=== PATIENT | female | born 1990 | race Caucasian/White ===

== ENCOUNTER 2022-08-30 18:08 | Emergency (ER) | payer OTHER ==
[~2022-08-30] VITALS: Ht 167.6 cm; Wt 106.9 kg
[2022-08-30] MEDS ORDERED: CYCL-707 PO (18:34)
[2022-08-30] MEDS ORDERED: NS 1,000 ML IV ONE (20:45)
[2022-08-30] MEDS ORDERED: PANTOPRAZOLE 40MG VIAL IV ONE (20:45)
[2022-08-30] MEDS: GASTROGRAFIN SOLUTION 30ML PO SCH ×2 (21:15→21:39)
[2022-08-30 21:41] LABS: BASO # 0.1 10^3/uL (0.0-0.2); BASO % 1.1 % (0.0-1.0); EOS # 0.5 10^3/uL (0.0-0.5); EOS % 5.6 % (0.0-3.0); HEMATOCRIT 45.6 % (36.0-47.0); HEMOGLOBIN 15.5 g/dl (12.0-15.5); LYMPH # 3.4 10^3/uL (1.5-5.0); LYMPH % 37.6 % (24.0-44.0); MEAN CORPUSCULAR HEMOGLOBIN 30.5 pg (27.0-33.0); MEAN CORPUSCULAR VOLUME 89.6 fl (80.0-96.0); MONO # 0.5 10^3/uL (0.0-0.8); MONO % 5.1 % (2.0-8.0); NEUTROPHILS # 4.6 10^3/uL (1.5-8.5); NEUTROPHILS % 50.4 % (36.0-66.0); PLATELET COUNT, AUTOMATED 236 10^3/uL (150-450); RED BLOOD COUNT 5.09 10^6/uL (4.00-5.40); WHITE BLOOD COUNT 9.1 10^3/uL (4.0-10.0)
[2022-08-30 22:10] LABS: LIPASE 25 U/L (12-53)
[2022-08-30 22:12] LABS: BILIRUBIN,DIRECT 0.2 MG/DL (<0.4)
[2022-08-30 22:19] LABS: HCG, SERUM QUALITATIVE NEGATIVE (NEGATIVE)
[2022-08-30 22:35] LABS: ALKALINE PHOSPHATASE 92 U/L (46-116); ALT/SGPT 26 U/L (7.0-40); AST/SGOT 18 U/L (<34); BILIRUBIN,TOTAL 0.4 MG/DL (0.3-1.2); BLOOD UREA NITROGEN 12 MG/DL (9-23); CALCIUM LEVEL 9.2 MG/DL (8.5-10.1); CARBON DIOXIDE LEVEL 26 MMOL/L (20-31); CHLORIDE LEVEL 106 MMOL/L (98-107); CREATININE FOR GFR 0.44 MG/DL (0.55-1.30); GLOMERULAR FILTRATION RATE > 60.0 (>60); GLUCOSE, FASTING 123 MG/DL (60-100); POTASSIUM SERUM 4.4 MMOL/L (3.5-5.1); SODIUM LEVEL 140 MMOL/L (136-145); TOTAL PROTEIN 7.1 G/DL (5.7-8.2)
[2022-08-30] MEDS ORDERED: ISOVUE-370 76% 100ML VIAL As Ordered ONE (22:38)
[2022-08-31] MEDS ORDERED: PROT1TAB2 PO (00:47)
[2022-08-31] MEDS ORDERED: CARA1TAB6 PO (00:47)
[2022-08-31 01:35] VITALS: BP 109/62
== END 2022-08-31 01:46 | disposition home or self-care (01) ==
LOC: M ED 18:08
DX: K80.50 Calculus of bile duct without cholangitis or cholecystitis without obstruction (principal); K27.9 Peptic ulcer, site unspecified, unspecified as acute or chronic, without hemorrhage or perforation; Z90.89 Acquired absence of other organs; Z98.84 Bariatric surgery status; F17.200 Nicotine dependence, unspecified, uncomplicated; M54.9 Dorsalgia, unspecified; Z88.0 Allergy status to penicillin; Z88.1 Allergy status to other antibiotic agents; Z88.2 Allergy status to sulfonamides; Z88.8 Allergy status to other drugs, medicaments and biological substances; Z79.899 Other long term (current) drug therapy
CPT/HCPCS: 74177; 80048; 80076; 83690; 84703; 85025; 96361; 96374; 99284; C9113

== ENCOUNTER 2023-07-06 11:21 | Day surgery (SDC) | payer OTHER ==
[~2023-07-06] VITALS: Ht 167.6 cm; Wt 110.2 kg
[~2023-07-06 11:21] MED LIST: CARA1TAB6 PO; CETI-24 PO; CYCL-707 PO; GLIM2TAB29 PO; OMEP40CA5 PO; PROT1TAB2 PO
[2023-07-06] MEDS ORDERED: LR 1,000 ML IV SCH (11:45)
[2023-07-06] MEDS ORDERED: INSULIN LISPRO (NovoLOG) PER UNIT SC PRN ×2 (11:55→14:15)
[2023-07-06] MEDS ORDERED: LIDOCAINE 2% 100MG/5ML SDV (FOR ANES.) As Ordered ONE (13:22)
[2023-07-06] MEDS ORDERED: METOCLOPRAMIDE INJ 10MG/2ML VIAL As Ordered ONE (13:22)
[2023-07-06] MEDS ORDERED: MIDAZOLAM INJ 2MG/2ML VIAL As Ordered ONE (13:22)
[2023-07-06] MEDS ORDERED: propofoL 200 MG/20 ML VIAL As Ordered ONE (13:22)
[2023-07-06] MEDS ORDERED: ROCURONIUM BROMIDE 50MG/5ML VIAL As Ordered ONE ×2 (13:22→13:29)
[2023-07-06] MEDS ORDERED: ONDANSETRON 4MG 2ML VIAL As Ordered ONE (13:22)
[2023-07-06] MEDS ORDERED: ACETAMINOPHEN 1000MG 100ML IV BAG As Ordered ONE (13:22)
[2023-07-06] MEDS ORDERED: PHENYLephrine 500MCG 5ML (100MCG/ML) SYRINGE As Ordered ONE (13:22)
[2023-07-06] MEDS ORDERED: fentaNYL 250 MCG/5 ML INJECTION As Ordered ONE (13:22)
[2023-07-06] MEDS ORDERED: SUGAMMADEX SODIUM 500 MG/5 ML VIAL (BRIDION) As Ordered ONE ×2 (13:22→13:28)
[2023-07-06] MEDS ORDERED: fentaNYL 100 MCG/2 ML INJECTION As Ordered ONE (13:33)
[2023-07-06] MEDS ORDERED: ONDANSETRON 4MG 2ML VIAL IV PRN (14:00)
[2023-07-06] MEDS ORDERED: fentaNYL 100 MCG/2 ML INJECTION IV PRN (14:00)
[2023-07-06] MEDS ORDERED: oxyCODONE 5MG TAB PO PRN (14:00)
[2023-07-06] MEDS ORDERED: NORCO, ANEXSIA 5/325MG TABLET (HYDROcodone/ACETAMINOPHEN) PO PRN (14:25)
[2023-07-06 15:45] VITALS: BP 148/77; TEMP 97.7; O2SAT 97
== END 2023-07-06 15:47 | disposition home or self-care (01) ==
LOC: M SDC 11:21
PROVIDERS: ATTEND Surgery
DX: K80.20 Calculus of gallbladder without cholecystitis without obstruction (principal); E11.9 Type 2 diabetes mellitus without complications; G43.909 Migraine, unspecified, not intractable, without status migrainosus; F32.A Depression, unspecified; J45.909 Unspecified asthma, uncomplicated; F17.218 Nicotine dependence, cigarettes, with other nicotine-induced disorders; Z98.84 Bariatric surgery status; Z79.84 Long term (current) use of oral hypoglycemic drugs; Z79.899 Other long term (current) drug therapy; Z88.0 Allergy status to penicillin; Z88.2 Allergy status to sulfonamides; Z88.8 Allergy status to other drugs, medicaments and biological substances
CPT/HCPCS: 47562; 88304; J0131; J0665; J2250; J2371; J2405; J2765; J3010; S2900

== ENCOUNTER → 2023-07-14 | Outpatient (CLI) | payer OTHER ==
[~2023-07-14] MED LIST changes: +GASTROGRAFIN SOLUTION 30ML As Ordered ONE; +ISOVUE-370 76% 100ML VIAL As Ordered ONE
[2023-07-14 09:16] LABS: BLOOD UREA NITROGEN 11 MG/DL (9-23); CREATININE FOR GFR 0.55 MG/DL (0.55-1.30); GLOMERULAR FILTRATION RATE > 60.0 (>60)
== END ==
LOC: M RAD 08:13
PROVIDERS: ATTEND Surgery
DX: R10.11 Right upper quadrant pain (principal); Z90.710 Acquired absence of both cervix and uterus; Z98.84 Bariatric surgery status; K82.8 Other specified diseases of gallbladder
CPT/HCPCS: 36415; 74177; 82565; 84520; Q9963; Q9967

== ENCOUNTER → 2023-07-14 | Outpatient (CLI) | payer OTHER ==
[~2023-07-14] VITALS: Ht 170.2 cm; Wt 107.3 kg
[~2023-07-14] MED LIST changes: -GASTROGRAFIN SOLUTION 30ML As Ordered ONE; +ISOVUE-300 61% 100ML VIAL As Ordered ONE; -ISOVUE-370 76% 100ML VIAL As Ordered ONE; +LIDOCAINE 1% MDV 20ML VIAL As Ordered ONE; +MIDAZOLAM INJ 2MG/2ML VIAL As Ordered ONE; +ONDANSETRON 4MG 2ML VIAL As Ordered ONE; +VANCOMYCIN 1000MG/20ML VIAL As Ordered ONE; +VANCOMYCIN HCL 1,000 MG, VIAL MATE ADAPTER 1 EACH in NS 250 ML IV ONE; +fentaNYL 100 MCG/2 ML INJECTION As Ordered ONE
[2023-07-14 14:44] VITALS: TEMP 97.5
[2023-07-14 15:19] LABS: HEMATOCRIT 40.9 % (36.0-47.0); HEMOGLOBIN 13.5 g/dl (12.0-15.5); MEAN CORPUSCULAR HEMOGLOBIN 28.9 pg (27.0-33.0); MEAN CORPUSCULAR VOLUME 87.6 fl (80.0-96.0); PLATELET COUNT, AUTOMATED 324 10^3/uL (150-450); RED BLOOD COUNT 4.67 10^6/uL (4.00-5.40); WHITE BLOOD COUNT 10.1 10^3/uL (4.0-10.0)
[2023-07-14 15:34] LABS: INR 1.11
[2023-07-14 17:45] VITALS: BP 173/92; O2SAT 96
== END ==
LOC: M IRPRO 14:35
PROVIDERS: ATTEND Surgery
DX: R10.11 Right upper quadrant pain (principal)
CPT/HCPCS: 36415; 47490; 85027; 85610; 87070; 87205; J2250; J3010; J3370; Q9967